=== PATIENT | female | born 1985 | race Caucasian/White ===

== ENCOUNTER 2020-08-11 09:38 | Inpatient (IN) ==
[2020-08-11] MEDS ORDERED: cefOXitin 2,000 MG in Water for inj. (sterile) 20 ML IVP ONE (09:55)
[2020-08-11] MEDS: Ringers Solution, Lactated 1,000 ML IVC SCH ×2 (10:19→17:03)
[2020-08-11] MEDS ORDERED: Acetaminophen IV 1,000 MG/100 ML INFUS..BTL IVPB ONE (10:29)
[2020-08-11] MEDS ORDERED: *HR* Midazolam HCl 2 MG/2 ML VIAL ONE (10:29)
[2020-08-11] MEDS ORDERED: Ondansetron 4 MG/2 ML VIAL ONE (10:29)
[2020-08-11] MEDS ORDERED: Lidocaine -MPF 2% 2 ML VIAL ONE (10:29)
[2020-08-11] MEDS ORDERED: *HR* FentaNYL (PF) 100 MCG/2 ML VIAL ONE (10:29)
[2020-08-11] MEDS ORDERED: *HR* Propofol 200 MG/20 ML VIAL IVP ONE (10:29)
[2020-08-11] MEDS ORDERED: Scopolamine Patch 1.5 MG PATCH.TD72 TD ONE (10:29)
[2020-08-11] MEDS ORDERED: *HR* Rocuronium Bromide 50 MG/5 ML VIAL ONE (10:29)
[2020-08-11] MEDS ORDERED: Lidocaine HCL 4 ML Topical Solution (Laryng-O-Jet Kit Sterile Pak) TP ONE (10:29)
[2020-08-11] MEDS ORDERED: Famotidine 20 MG/2 ML VIAL IVP ONE (10:29)
[2020-08-11] MEDS ORDERED: Ondansetron 4 MG/2 ML VIAL IVP PRN (10:30)
[2020-08-11] MEDS ORDERED: *HR* Promethazine 25 MG/ML VIAL IVP PRN (10:30)
[2020-08-11] MEDS ORDERED: *HR* Meperidine 25 MG/ML SYRINGE IVP PRN (10:30)
[2020-08-11] MEDS ORDERED: Dexamethasone 4 MG/ML VIAL ONE (12:47)
[2020-08-11] MEDS ORDERED: Naloxone 0.4 MG/ML INJ IVP PRN (13:38)
[2020-08-11] MEDS: *HR* HYDROmorphone PF 0.5 MG/0.5 ML SYRINGE IVP PRN ×2 (13:53→14:22)
[2020-08-11] MEDS: Ketorolac 15 MG/ML VIAL IVP PRN ×2 (15:37→20:53)
[2020-08-11] MEDS: *HR* OxyCODONE/APAP 5/325 TABLET PO PRN (17:00)
[2020-08-11] MEDS: cefOXitin 2,000 MG in Water for inj. (sterile) 10 ML IVP SCH (20:56)
[2020-08-12] MEDS: *HR* OxyCODONE/APAP 5/325 TABLET PO PRN ×2 (00:30→09:56)
[2020-08-12] MEDS ORDERED: Water for inj. (sterile) 20 ML IV ONE (04:31)
[2020-08-12] MEDS: cefOXitin 2,000 MG in Water for inj. (sterile) 10 ML IVP SCH (04:41)
[2020-08-12] MEDS: Ketorolac 15 MG/ML VIAL IVP PRN ×2 (05:12→11:37)
[2020-08-12 08:10] LABS: Basophils % 0.1 %; Hemoglobin 7.7 g/dL (11.5-15.4)
[2020-08-12 08:11] LABS: Hematocrit 27.8 % (35.3-44.9); Immature Granulocytes % 0.4 % (0-4); Lymphocytes # 0.9 K/mcL (0.6-4.6); Lymphocytes % 6.1 %; Mean Corpuscular HGB Conc 27.7 g/dL (31.6-35.5); Mean Corpuscular Hemoglobin 21.9 pg (28.0-33.3); Mean Platelet Volume 9.6 fL (9.4-12.4); Monocytes % 6.8 %; Neutrophils # 12.5 K/mcL (1.6-8.9); Platelet Count 315 K/mcL (140-400); Red Blood Count 3.52 M/mcL (3.82-4.97); Red Cell Distribution Width 18.2 % (11.5-14.5); Segmented Neutrophils % 86.6 %; White Blood Count 14.4 K/mcL (4.3-11.1)
[2020-08-12 08:30] LABS: BUN/Creatinine Ratio 10 (6-26); Blood Urea Nitrogen 7 mg/dL (6-20); eGFR For African Americans > 60 (> 60); eGFR For Non-African Americans > 60 (> 60)
[2020-08-12 08:37] LABS: Hypochromasia Present (Not Present); Platelet Estimate Normal (Normal)
[2020-08-12] MEDS ORDERED: Simethicone 80 MG TAB.CHEW PO PRN (09:29)
[2020-08-12] MEDS ORDERED: FLU Vac QV 20-21 (6Month+)/PF 0.5 ML SYRINGE IM ONE (11:28)
[2020-08-12 12:25] VITALS: BP 118/77
== END 2020-08-12 13:26 | disposition home or self-care (01) | DRG 743 ==
LOC: SAMDAY 09:38 → 1NENUPED 14:28
PROVIDERS: ADMIT Obstetrics & Gynecology; ATTEND Obstetrics & Gynecology